=== PATIENT | female | born 1935 | race Caucasian/White ===

== ENCOUNTER 2022-02-09 08:47 | Inpatient (IN) ==
[2022-02-09 09:49] LABS: Eosinophils # 0.3 10*3/uL (0.0-0.87); Eosinophils % 2.8 % (0.00-10.9); Hematocrit 39.2 VOL% (35.7-47.0); Hemoglobin 12.7 GM/DL (12.0-16.0); Immature Granulocytes % 0.3 %; Immature Granulocytes Absolute 0.03 #; Lymphocytes # 0.9 10*3/uL (1.4-4.0); Lymphocytes % 9.9 % (21.3-54.2); Mean Corpuscular HGB Conc 32.4 GM/DL (32-36); Mean Corpuscular Volume 92.2 FL (87-102); Mean Platelet Volume 10.4 FL (9.6-12.0); Monocytes # 0.8 10*3/uL (0.11-0.8); Monocytes % 8.8 % (1.7-12.7); Neutrophils % 78.2 % (38.7-73.9); Platelet Count 194 T/CUMM (130-400); Red Blood Count 4.25 MC/CUMM (3.8-5.5); White Blood Count 9.4 T/CUMM (4-12)
[2022-02-09 09:58] LABS: INR 0.9; PT Patient Result 10.4 SECS (10.1-12.1)
[2022-02-09 10:06] LABS: Albumin 3.3 G/DL (3.4-5.0); Bilirubin,Total 0.5 MG/DL (0.20-1.00); Calcium 9.1 MG/DL (8.5-10.1); Osmolality,Calculated 280.8 MOS/KG (273-304); Potassium 5.2 MMOL/L (3.5-5.1); Total Protein 6.2 G/DL (6.4-8.2)
[2022-02-09 10:41] LABS: Bilirubin,Urine Negative (Negative); Blood, Urine Negative (Negative); Glucose,Urine (UA) Negative (Negative); Hyaline Casts,Urine 22 /LPF (0-3); Ketones,Urine Negative (Negative); Mucus,Urine Occasional /LPF (Occasional); Nitrite,Urine Negative (Negative); Protein,Urine Negative (Negative); RBC,Urine 1 /HPF (0-4); Squamous Epithelial Cell,Urine Occasional /HPF (0-10); Urine Appearance CLEAR (Clear); Urine Color Yellow (Yellow); Urine Specific Gravity 1.009 (1.001-1.035); Urine Urobilinogen < 2.0 eU/dL (<2.0)
[2022-02-09] MEDS ORDERED: MORPHINE 2 MG/1 ML SYRINGE IV PRN (11:40)
[2022-02-09] MEDS ORDERED: ALBUTEROL/IPRATROPIUM 3 ML NEB RESP TX PRN (11:40)
[2022-02-09] MEDS ORDERED: DOCUSATE SODIUM 100 MG CAPSULE PO PRN (11:40)
[2022-02-09] MEDS ORDERED: ONDANSETRON 4 MG/2 ML VIAL IV PRN (11:40)
[2022-02-09] MEDS ORDERED: ACETAMINOPHEN 325 MG TABLET PO PRN (11:40)
[2022-02-09] MEDS ORDERED: hydrALAZINE 20 MG/1 ML VIAL IV PRN (11:40)
[2022-02-09] MEDS ORDERED: MAGNESIUM SULF RIDER 4 GM/100 ML PREMIX IV PRN (11:44)
[2022-02-09] MEDS ORDERED: MAGNESIUM SULF RIDER 2 GM/50 ML PREMIX IV PRN (11:44)
[2022-02-09] MEDS: ALBUTEROL 2.5 MG/3 ML NEB RESP TX SCH ×2 (13:46→19:44)
[2022-02-09] MEDS ORDERED: SODIUM POLYSTYRENE SULFATE 15 GM/60 ML BOTTLE PO ONE (14:38)
[2022-02-09] MEDS ORDERED: oxyCODONE/ACETAMINOPHEN 5-325 MG TABLET PO PRN (14:46)
[2022-02-09] MEDS ORDERED: FUROSEMIDE 40 MG/4 ML VIAL IV SCH (16:00)
[2022-02-09] MEDS: carvediloL 6.25 MG TABLET PO SCH (20:31)
[2022-02-09] MEDS: guaiFENesin/DM ER 600-30 MG TABLET PO SCH (20:31)
[2022-02-09] MEDS: APIXABAN 2.5 MG TABLET PO SCH (20:31)
[2022-02-09] MEDS ORDERED: FUROSEMIDE 40 MG/4 ML VIAL IV STA (20:52)
[2022-02-09] MEDS ORDERED: GABAPENTIN 300 MG CAPSULE PO SCH (21:00)
[2022-02-10] MEDS: ALBUTEROL 2.5 MG/3 ML NEB RESP TX SCH ×3 (01:07→13:45)
[2022-02-10 05:18] LABS: Eosinophils # 0.2 10*3/uL (0.0-0.87); Eosinophils % 3.2 % (0.00-10.9); Hematocrit 34.7 VOL% (35.7-47.0); Hemoglobin 11.2 GM/DL (12.0-16.0); Immature Granulocytes % 0.5 %; Immature Granulocytes Absolute 0.03 #; Lymphocytes # 0.7 10*3/uL (1.4-4.0); Lymphocytes % 11.1 % (21.3-54.2); Mean Corpuscular HGB Conc 32.3 GM/DL (32-36); Mean Corpuscular Volume 90.4 FL (87-102); Mean Platelet Volume 11.5 FL (9.6-12.0); Monocytes # 0.6 10*3/uL (0.11-0.8); Monocytes % 9.1 % (1.7-12.7); Neutrophils % 76.1 % (38.7-73.9); Platelet Count 151 T/CUMM (130-400); Red Blood Count 3.84 MC/CUMM (3.8-5.5); Red Cell Distribution Width 13.7 % (9.3-17.3); White Blood Count 6.5 T/CUMM (4-12)
[2022-02-10 05:56] LABS: Calcium 8.7 MG/DL (8.5-10.1); Osmolality,Calculated 279.8 MOS/KG (273-304); Potassium 3.5 MMOL/L (3.5-5.1); Risk Ratio 2.11; Thyroid Stimulating Hormone 0.726 uIU/ml (0.358-3.74); VLDL Cholesterol 19.2 MG/DL
[2022-02-10] MEDS ORDERED: LEVOTHYROXINE 75 MCG TABLET PO SCH (06:30)
[2022-02-10] MEDS ORDERED: FUROSEMIDE 40 MG/4 ML VIAL IV SCH (08:00)
[2022-02-10] MEDS: guaiFENesin/DM ER 600-30 MG TABLET PO SCH (08:22)
[2022-02-10] MEDS: APIXABAN 2.5 MG TABLET PO SCH (08:23)
[2022-02-10] MEDS: carvediloL 6.25 MG TABLET PO SCH (08:23)
[2022-02-10] MEDS ORDERED: CLOPIDOGREL 75 MG TABLET PO SCH (09:00)
[2022-02-10] MEDS ORDERED: PANTOPRAZOLE 40 MG TABLET PO SCH (09:00)
[2022-02-10] MEDS ORDERED: diphenhydrAMINE CAP 25 MG CAPSULE PO PRN (09:16)
[2022-02-10 12:27] VITALS: BP 113/73
== END 2022-02-10 16:22 | disposition home health service (06) | DRG 291 ==
LOC: N.ED 08:47 → SUATTDRO 11:40 → N.EDINP 11:40 → N.5E 15:06
PROVIDERS: ADMIT Family Medicine; ATTEND Internal Medicine